=== PATIENT | female | born 1970 | race Caucasian/White ===

== ENCOUNTER 2020-01-03 12:34 | Outpatient (CLI) | payer OTHER, SELFPAY ==
--- NOTE | ~2020-01-03 | MM_ITS ---
EXAMINATION: MM diagnostic ana paula RT w foreign HISTORY: Six-month follow-up of findings reported on outside examinations at [facility] in [facility]. TECHNIQUE: ML, MLO and cc craniocaudal 3-D tomosynthesis images of the right breast were performed an d synthetic 2-D images were generated. CAD analysis was submitted and interpreted. COMPARISON: 04/12/2019 bilateral digital screening mammogram 04/28/2019 diagnostic right digital mammogram and right breast ultrasound examination BREAST PARENCHYMAL COMPOSITION: There are scattered areas of fibroglandular density. FINDINGS: There is diminished nodular prominence of the fibroglandular stroma since 04/12/2019 and 04/03. No interval new or enlarging mass is suggested. Repeat right breast ultrasound is recommended, with comparison to the 04/28/2019 right breast ultrasou nd examination. IMPRESSION: Incomplete; need additional imaging evaluation Right breast ultrasound examination is recommended, with comparison to 04/28/2019 right breast ultraso und BI-RADS Category 0: Incomplete: Needs additional imaging evaluation. Reviewed, dictated and finalized at location A. [employer] IMPRESSION: Incomplete; need additional imaging evaluation Right breast ultrasound examination is recommended, with comparison to 9 right breast ultrasound BI-RADS Category 0: Incomplete: Needs additional imaging evaluation.
== END 2020-01-03 12:35 | disposition home or self-care (01) ==
DX: R92.8 Other abnormal and inconclusive findings on diagnostic imaging of breast (principal)
CPT/HCPCS: 77061; 77065; G0279

== ENCOUNTER 2020-01-11 12:50 | Outpatient (CLI) | payer OTHER, SELFPAY ==
--- NOTE | ~2020-01-11 | US_ITS ---
EXAMINATION: US breast RT limited HISTORY: Six-month follow-up for probably benign right breast mass TECHNIQUE: Limited right breast ultrasound is performed. FINDINGS: There is a stable 7 mm x 6 mm oval, circumscribed, not parallel, hypoechoic mass with no po sterior features or internal vascularity at the 2:00 location 6 cm from the nipple. There has been no suspicious interval change. IMPRESSION: Stable, probably benign right breast mass. Follow-up right diagnostic mammogram and ultrasound in six months are recommended. BI-RADS category 3, probably benign findings. Reviewed, dictated and finalized at location A.
== END 2020-01-11 12:51 | disposition home or self-care (01) ==
PROVIDERS: Visit Provider Family Medicine
DX: R92.8 Other abnormal and inconclusive findings on diagnostic imaging of breast (principal)
CPT/HCPCS: 76642